=== PATIENT | male | born 1955 | race Caucasian/White ===

== ENCOUNTER → 2016-06-10 | Outpatient (REF) | payer BC ==
[2016-06-10 17:12] LABS: MEAN CORPUSCULAR HEMOGLOBIN 29.6 pg (27.0-33.0); MEAN CORPUSCULAR HGB CONC 32.6 g/dl (32.0-36.5); MEAN CORPUSCULAR VOLUME 90.8 fl (80.0-96.0); RED CELL DISTRIBUTION WIDTH 12.7 % (11.5-14.5); WHITE BLOOD COUNT 9.8 K/mm3 (4.0-10.0)
[2016-06-10 18:04] LABS: ALBUMIN 3.8 GM/DL (3.2-5.2); ALBUMIN/GLOBULIN RATIO 1.15 (1.00-1.93); ALKALINE PHOSPHATASE 103 U/L (45-117); ALT/SGPT 38 U/L (12-78); ANION GAP 8 MEQ/L (8-16); AST/SGOT 26 U/L (15-37); BILIRUBIN,TOTAL 0.5 MG/DL (0.2-1.0); BLOOD UREA NITROGEN 19 MG/DL (7-18); CALCIUM LEVEL 9.4 MG/DL (8.8-10.2); CARBON DIOXIDE LEVEL 31 MEQ/L (21-32); CHLORIDE LEVEL 101 MEQ/L (98-107); CHOLESTEROL LEVEL 170 MG/DL (<200); CREATININE FOR GFR 0.73 MG/DL (0.70-1.30); GLOMERULAR FILTRATION RATE > 60.0 (>49); GLUCOSE, FASTING 104 MG/DL (80-110); POTASSIUM SERUM 4.3 MEQ/L (3.5-5.1); SODIUM LEVEL 140 MEQ/L (136-145); TOTAL PROTEIN 7.1 GM/DL (6.4-8.2); TRIGLYCERIDES LEVEL 167 MG/DL (<150)
== END ==
LOC: M LAB REF 16:24
PROVIDERS: ATTEND Family Medicine
DX: E29.1 Testicular hypofunction (principal); I10 Essential (primary) hypertension

== ENCOUNTER → 2017-04-29 | Outpatient (CLI) | payer BC | LOC: M WUC 14:56 | DX: M54.5 Low back pain (principal) ==

== ENCOUNTER 2017-05-09 13:28 | Emergency (ER) | payer BC | END 2017-05-09 16:30 | disposition home or self-care (01) | LOC: M ED 13:28 | DX: M54.5 Low back pain (principal); M62.830 Muscle spasm of back; G89.29 Other chronic pain; I10 Essential (primary) hypertension; K21.9 Gastro-esophageal reflux disease without esophagitis; Z91.81 History of falling; Z79.899 Other long term (current) drug therapy | CPT/HCPCS: 99282 ==

== ENCOUNTER → 2017-06-01 | Outpatient (CLI) | payer BC ==
[2017-06-01 18:05] LABS: BASO # 0.1 10^3/uL (0.0-0.2); BASO % 0.7 % (0.0-1.0); EOS # 0.4 10^3/uL (0.0-0.50); EOS % 4.5 % (0.0-3.0); HEMATOCRIT 43.3 % (42.0-52.0); HEMOGLOBIN 13.9 g/dl (14.0-18.0); IMMATURE GRANULOCYTE % 0.4 % (0-3.0); LYMPH # 3.1 10^3/uL (1.5-4.5); LYMPH % 31.5 % (24.0-44.0); MEAN CORPUSCULAR HEMOGLOBIN 29.1 pg (27.0-33.0); MEAN CORPUSCULAR HGB CONC 32.1 g/dl (32.0-36.5); MEAN CORPUSCULAR VOLUME 90.8 fl (80.0-96.0); MONO # 0.7 10^3/uL (0.0-0.8); MONO % 7.6 % (0.0-5.0); NEUTROPHILS # 5.4 10^3/uL (1.8-7.7); NEUTROPHILS % 55.3 % (36.0-66.0); PLATELET COUNT, AUTOMATED 271 10^3/uL (150-450); RED BLOOD COUNT 4.77 10^6/uL (4.30-6.10); RED CELL DISTRIBUTION WIDTH 13.8 % (11.5-14.5); WHITE BLOOD COUNT 9.7 10^3/uL (4.0-10.0)
[2017-06-01 18:17] LABS: ALBUMIN 3.6 GM/DL (3.2-5.2); ALBUMIN/GLOBULIN RATIO 1.09 (1.00-1.93); ALKALINE PHOSPHATASE 98 U/L (45-117); ALT/SGPT 42 U/L (12-78); ANION GAP 9 MEQ/L (8-16); AST/SGOT 26 U/L (7-37); BILIRUBIN,TOTAL 0.5 MG/DL (0.2-1.0); BLOOD UREA NITROGEN 19 MG/DL (7-18); CALCIUM LEVEL 8.4 MG/DL (8.8-10.2); CARBON DIOXIDE LEVEL 29 MEQ/L (21-32); CHLORIDE LEVEL 104 MEQ/L (98-107); CHOLESTEROL LEVEL 139 MG/DL (<200); CHOLESTEROL RISK RATIO 3.657 (<5); CREATININE FOR GFR 0.83 MG/DL (0.70-1.30); GLOMERULAR FILTRATION RATE > 60.0 (>49); GLUCOSE, FASTING 102 MG/DL (70-100); HDL CHOLESTEROL 38 MG/DL (>40); LDL CHOLESTEROL 80.2 MG/DL (<100); NON-HDL-C 101 MG/DL; POTASSIUM SERUM 4.1 MEQ/L (3.5-5.1); SODIUM LEVEL 142 MEQ/L (136-145); TOTAL PROTEIN 6.9 GM/DL (6.4-8.2); TRIGLYCERIDES LEVEL 104 MG/DL (<150)
== END ==
LOC: M WUC 09:47
DX: I10 Essential (primary) hypertension (principal)
CPT/HCPCS: 80053

== ENCOUNTER → 2018-02-03 | Outpatient (CLI) | payer BC ==
[2018-02-03 12:41] LABS: BASO # 0.1 10^3/uL (0.0-0.2); BASO % 0.9 % (0.0-1.0); EOS # 0.3 10^3/uL (0.0-0.50); EOS % 2.9 % (0.0-3.0); HEMATOCRIT 48.2 % (42.0-52.0); HEMOGLOBIN 15.7 g/dl (13.5-17.5); IMMATURE GRANULOCYTE % 0.4 % (0-3.0); LYMPH # 3.9 10^3/uL (1.5-4.5); MEAN CORPUSCULAR HGB CONC 32.6 g/dl (32.0-36.5); MEAN CORPUSCULAR VOLUME 92.2 fl (80.0-96.0); MONO # 0.8 10^3/uL (0.0-0.8); MONO % 6.7 % (0.0-5.0); NEUTROPHILS % 54.1 % (36.0-66.0); PLATELET COUNT, AUTOMATED 341 10^3/uL (150-450); RED BLOOD COUNT 5.23 10^6/uL (4.30-6.10); RED CELL DISTRIBUTION WIDTH 13.2 % (11.5-14.5); WHITE BLOOD COUNT 11.2 10^3/uL (4.0-10.0)
[2018-02-03 12:50] LABS: ALBUMIN 3.9 GM/DL (3.2-5.2); ALBUMIN/GLOBULIN RATIO 1.15 (1.00-1.93); ALKALINE PHOSPHATASE 107 U/L (45-117); ALT/SGPT 40 U/L (12-78); ANION GAP 9 MEQ/L (8-16); AST/SGOT 19 U/L (7-37); BILIRUBIN,TOTAL 0.4 MG/DL (0.2-1.0); BLOOD UREA NITROGEN 19 MG/DL (7-18); CALCIUM LEVEL 9.1 MG/DL (8.8-10.2); CARBON DIOXIDE LEVEL 26 MEQ/L (21-32); CHLORIDE LEVEL 103 MEQ/L (98-107); CREATININE FOR GFR 1.04 MG/DL (0.70-1.30); GLOMERULAR FILTRATION RATE > 60.0 (>49); GLUCOSE, FASTING 123 MG/DL (70-100); POTASSIUM SERUM 4.2 MEQ/L (3.5-5.1); SODIUM LEVEL 138 MEQ/L (136-145); TOTAL PROTEIN 7.3 GM/DL (6.4-8.2)
== END ==
LOC: M WUC 09:57
DX: I10 Essential (primary) hypertension (principal)
CPT/HCPCS: 84443

== ENCOUNTER → 2018-06-10 | Outpatient (CLI) | payer OTHER ==
[~2018-06-10] MED LIST: AMLO10CA PO; CELE1CAP9 PO; METO50TA9; ROBA500T PO; SIMV20TA2 PO
[2018-06-10 16:39] LABS: ALBUMIN 3.9 GM/DL (3.2-5.2); BLOOD UREA NITROGEN 25 MG/DL (7-18); CALCIUM LEVEL 9.2 MG/DL (8.8-10.2); CARBON DIOXIDE LEVEL 25 MEQ/L (21-32); CHLORIDE LEVEL 101 MEQ/L (98-107); GLOMERULAR FILTRATION RATE > 60.0 (>49); GLUCOSE, FASTING 105 MG/DL (70-100); PHOSPHORUS LEVEL 3.5 MG/DL (2.5-4.9); POTASSIUM SERUM 4.8 MEQ/L (3.5-5.1); SODIUM LEVEL 136 MEQ/L (136-145)
== END ==
LOC: M WUC 10:54
DX: R94.4 Abnormal results of kidney function studies (principal)

== ENCOUNTER → 2018-07-14 | Outpatient (CLI) | payer OTHER ==
--- NOTE | 2018-07-20 16:56 | SLEEPCENT ---
DATE OF PROCEDURE: 07/14/2018 ORDERED BY: SUZIE Mckeon Nocturnal polysomnography was performed for the evaluation of sleep physiology in this patient with a history of excessive somnolence and nonrestorative sleep. 8 hours and 40 minutes of data were reviewed. There were 328 minutes of sleep identified. Sleep latency was mildly prolonged at 23.5 minutes, rapid eye movement (REM) latency more so prolonged at 242 minutes. Sleep architecture initially quite fragmented improved after interventions were made. Overall sleep efficiency 63.8%. The patient's electrocardiogram showed a sinus rhythm with PVCs. Average heart rate 90 beats per minute. EEG showed normal waveforms for awake and sleep. There were 138 respiratory events identified of 10 seconds in duration or greater for an apnea-hypopnea index of 25.2. The events were primarily obstructive, associated with arousals 22.8 times per hour and oxygen desaturations into the 80s. Having clearly established the presence of obstructive sleep apnea syndrome, testing was stopped shortly after midnight for the application of pressure therapy. The patient was fit with a ResMed Quattro full face mask of medium size, 5 cm of water pressure was applied to the circuit, and the lights were extinguished. Throughout the remaining course of study, pressure titration was performed to an optimal pressure of +13 with which the patient slept through REM without significant respiratory event or oxygen desaturation. Some limb activity was seen in the EMG leads. IMPRESSION: Obstructive sleep apnea syndrome (G47.33). Apnea-hypopnea index 25.2. RECOMMENDATIONS: The patient should utilize continuous positive airway pressure (CPAP) at a pressure of 11 cm on a nightly basis.
== END ==
LOC: M SLEEP 19:38
PROVIDERS: ATTEND Nurse Practitioner Family
DX: G47.33 Obstructive sleep apnea (adult) (pediatric) (principal)

== ENCOUNTER → 2018-09-15 | Outpatient (CLI) | payer OTHER ==
[~2018-09-15] MED LIST changes: -AMLO10CA PO; +AMLO10CA17 PO; +CONT1TAB PO; +DILT60TA PO; +ELIQ5TAB PO; +METO200T28 PO
--- NOTE | 2018-09-21 09:38 | REP ---
PET/CT: HISTORY: Staging metastatic melanoma as a lymph node. History of melanoma right lower leg, stage III C. COMPARISONS: No comparison studies. TECHNIQUE: 50 minutes following the intravenous injection of a 9.38 mCi dose of F-18 FDG, three-dimensional PET scintigraphy was attempted from the skull vertex to the toes. Triplanar noncontrast CT scanning is acquired through the same anatomic range for attenuation correction, and image registration with scan parameters optimized to minimize radiation exposure to the patient. PET scintigraphy and CT datasets were fused and displayed on a workstation with multiplanar and projection display capability. The patient had difficulty cooperating with remaining motionless in the scanner and in the middle of the scan, the patient insisted that we interrupt the exam. The head, neck, chest, and abdomen to mid pelvic level were acquired as one linked sequence prior to the interruption. The scintigraphic sequence could not be completed and was interrupted at the level of the mid pelvis through the distal thighs. A separate scintigraphic acquisition was acquired of the calves. Image quality was also inhibited by patient body habitus. PET/CT FINDINGS: The scintigraphic imaging acquisition was incomplete from mid pelvic level to the level of the distal femurs just above the knees. Head and neck soft tissues are unremarkable. There is no abnormal hypermetabolic uptake in the thorax. There is some artifact in the anterior abdomen regarding patient body habitus but no abnormal retroperitoneal huy or intrahepatic hypermetabolic uptake is appreciated. No adenopathy is noted in the upper pelvis. No adenopathy is visible in the lower pelvis or inguinal regions by CT study but scintigraphy imaging is incomplete here. There is a linear zone of dermal and subcutaneous FDG accumulation in the posterolateral aspect of the right calf suggestive of postoperative changes. Maximum standard uptake value here is 4.72. Images acquired of the lower extremity are otherwise unremarkable. IMPRESSION: Incomplete imaging due to patient tolerance factors. Linear area of presumed postoperative uptake in the right lateral calf. No other abnormal hypermetabolic uptake seen. The PET scintigraphy acquisition was incomplete in the area from the distal thighs to the central pelvis. Electronically Signed by Brian Leroy MD 09/21/2018 11:57 A
== END ==
LOC: M PLARAD 11:23
PROVIDERS: ATTEND Surgery Surgical Oncology
DX: C77.9 Secondary and unspecified malignant neoplasm of lymph node, unspecified (principal); Z85.820 Personal history of malignant melanoma of skin; Z53.8 Procedure and treatment not carried out for other reasons
CPT/HCPCS: 78816; A9552

== ENCOUNTER → 2018-12-05 | Outpatient (CLI) | payer OTHER ==
[~2018-12-05] MED LIST changes: +HYDR-643 PO
--- NOTE | 2018-12-05 14:54 | REP ---
Right clavicle two views : There is no fracture or dislocation. Mineralization and joint spaces are normal. There are no calcifications or foreign bodies. Impression: Negative right clavicle . Electronically Signed by Devante Roger MD 12/05/2018 02:45 P
== END ==
LOC: M WUC 14:16
PROVIDERS: ATTEND Physician Assistant
DX: M25.512 Pain in left shoulder (principal)

== ENCOUNTER 2019-02-19 09:30 | Day surgery (SDC) | payer OTHER ==
[~2019-02-19] VITALS: Ht 177.8 cm; Wt 189.3 kg
[~2019-02-19 09:30] MED LIST changes: +LIDOCAINE 2% INJ 100 MG/5 ML SDV (FOR ANES.) As Ordered ONE; +LOTR10CA PO; +MIDAZOLAM INJ 2 MG/2 ML VIAL (J2250) As Ordered ONE; +ONDANSETRON 4MG/2ML VIAL (J2405) As Ordered ONE; +PROPOFOL 200 MG/20 ML VIAL As Ordered ONE; -SIMV20TA2 PO; +SIMV20TA22 PO; +fentaNYL 100 MCG/2 ML INJECTION (J3010) As Ordered ONE
[2019-02-19] MEDS ORDERED: LR 1,000 ML IV ONE (10:15)
[2019-02-19] MEDS ORDERED: ceFAZolin SOD 1 GM in D5W MINI-BAG PLUS 50 ML IV ONE (10:15)
--- NOTE | 2019-02-19 10:31 | ECGEPIP ---
[facility] Test Date: 2019-02-19 Pat Name: GAVIN GRIDER Department: Room: - Gender: Male Entry Level Buyer: KAJAL : [id number] Requested By: Leonard Jacobo Order Number: [id number] Reading MD: Fred Killian Measurements Intervals [place] Rate: 117 P: ND: 0 QRS: 39 QRSD: 143 T: -14 QT: 330 QTc: 462 Interpretive Statements ATRIAL FIBRILLATION WITH RAPID VENTRICULAR RESPONSE Right bundle branch block Nonspecific ST-T wave abnormalities Electronically Signed on 02-19-2019 10:31:47 EST by Fred Killian
[2019-02-19] MEDS ORDERED: LR 500 ML IV ONE (10:45)
[2019-02-19] MEDS ORDERED: LIDOCAINE 1% SDV INJ 30 ML VIAL As Ordered ONE (10:46)
[2019-02-19] MEDS ORDERED: BUPIVACAINE HCL 0.5% 30 ML VIAL As Ordered ONE (10:47)
[2019-02-19] MEDS ORDERED: HEPARIN SOD (PORCINE) 5000 UNITS/ML VIAL As Ordered ONE (10:48)
[2019-02-19] MEDS ORDERED: METOPROLOL 5 MG/5 ML VIAL As Ordered ONE (11:12)
[2019-02-19] MEDS ORDERED: ALBUTEROL SULFATE 2.5 MG/0.5 ML INH NEB SOLN As Ordered ONE (11:18)
[2019-02-19 12:15] VITALS: BP 135/78
[2019-02-19] MEDS ORDERED: LR 1,000 ML IV SCH (13:15)
[2019-02-19] MEDS ORDERED: PERCOCET 5MG/325MG TAB PO PRN (13:15)
[2019-02-19] MEDS ORDERED: HYDROMORPHONE HCL 0.5 MG/ 0.5 ML SYRINGE (J1170 PER 1) IV PRN (13:15)
[2019-02-19] MEDS ORDERED: fentaNYL 100 MCG/2 ML INJECTION (J3010) IV PRN (13:15)
[2019-02-19] MEDS ORDERED: ONDANSETRON 4MG/2ML VIAL (J2405) IV PRN (13:15)
--- NOTE | 2019-02-22 07:40 | REP ---
Clinical: Status post Lhtthf-D-Zwvd placement. Findings: Mehugj-M-Gfwl identified with tip in the SVC. Mediastinum and cardiac silhouette are normal. No consolidation, obvious effusion, or pneumothorax. Skeletal structures are intact. Impression: Sjblok-P-Uiyf with tip in the SVC. No pneumothorax. Electronically Signed by Mason Pitt MD 02/19/2019 12:41 P
--- NOTE | 2019-02-22 18:39 | RO ---
DATE OF PROCEDURE: 02/19/2019 PREOPERATIVE DIAGNOSIS: IV access needed for chemotherapy. POSTOPERATIVE DIAGNOSIS: IV access needed for chemotherapy. PROCEDURE: Left subclavian Kuafci-J-Ccmq placement with fluoroscopic guidance. SURGEON: Lio Farooq MD BOTTLING ROOM WORKER: ANESTHESIA: Local with sedation. ESTIMATED BLOOD LOSS: Minimal. FLUIDS: Crystalloid. DESCRIPTION OF PROCEDURE: The patient was brought to the operating room, was given IV sedation, was prepped and draped in the usual sterile fashion, and was placed in the supine position with a slightly Trendelenburg position, but given his overall morbid obesity, this was just a slight reclining position. In any case, after being prepped and draped in the usual sterile fashion, local lidocaine was infiltrated in the skin and subcutaneous tissue down to the clavicle on the left-hand side and finder needle was placed into the vein. At this point, the port site was infiltrated with local, and once this was infiltrated, a needle was placed into the vein without difficulty, wire placed over this and fluoroscopy confirmed placement of the wire into the superior vena cava. The Qkyhsk-Q-Ctcc pocket then was created, first with a skin knife. Electrocautery was used to cut through dermis, underlying subcutaneous tissue. The patient had a significant amount of collaterals all across his chest wall but eventually after good hemostasis was achieved and adequate pocket size, the Blzhyi-A-Ktmu was sewn in medially and laterally with #3-0 Vicryl. The Dfxdeh-O-Mfoj was cut to the appropriate length at 22 cm and brought through a subcutaneous pocket up to the puncture site at the infraclavicular area. Dilator was placed over the wire, then dilator sheath combination was placed over the wire. The sheath was left in place. The dilator and wire were removed, and the catheter placed through this without difficulty. The peel-away sheath was removed, and the catheter flushed and aspirated without difficulty. Fluoroscopy confirmed placement of the catheter in the superior vena cava area, and then the incisions were closed with two layers, #3-0 Vicryl dermal layer and #4-0 Vicryl subcuticular. Steri-Strips and a dry sterile dressing was applied. The patient was awakened from his sedation, brought to the recovery room awake, alert, hemodynamically stable. Sponge and needle counts correct times two.
== END 2019-02-19 12:25 | disposition home or self-care (01) ==
LOC: M SDC 09:30
PROVIDERS: ATTEND Surgery
DX: C43.71 Malignant melanoma of right lower limb, including hip (principal); Z45.2 Encounter for adjustment and management of vascular access device; I48.91 Unspecified atrial fibrillation; I10 Essential (primary) hypertension; E78.5 Hyperlipidemia, unspecified; E66.01 Morbid (severe) obesity due to excess calories; G47.30 Sleep apnea, unspecified; Z87.891 Personal history of nicotine dependence; Z79.01 Long term (current) use of anticoagulants; Z79.899 Other long term (current) drug therapy
CPT/HCPCS: 36561; 71045; 76000; 93005; C1788; J0690; J2250; J2405; J3010

== ENCOUNTER → 2019-11-04 | Outpatient (CLI) | payer OTHER ==
[~2019-11-04] MED LIST changes: +CLOB-25; -LIDOCAINE 2% INJ 100 MG/5 ML SDV (FOR ANES.) As Ordered ONE; -MIDAZOLAM INJ 2 MG/2 ML VIAL (J2250) As Ordered ONE; -ONDANSETRON 4MG/2ML VIAL (J2405) As Ordered ONE; -PROPOFOL 200 MG/20 ML VIAL As Ordered ONE; -fentaNYL 100 MCG/2 ML INJECTION (J3010) As Ordered ONE
--- NOTE | 2019-11-12 16:51 | REP ---
BILATERAL SOFT TISSUE ULTRASOUND OF THE GROIN HISTORY: Stage III melanoma right leg with positive lymph node. Evaluate right inguinal lymph nodes for recurrence. COMPARISON: Made with imaging from PET CT study 09/15/2018. FINDINGS: A single lymph node is visible in the right inguinal soft tissues with a thin cortical margin and a central hilar echogenic fat consistent with a benign lymph node. This measures 9 x 9 x 6 mm. On the left, there are two benign appearing fat-replaced lymph nodes with thin cortical margins. These measure as follows: 11 x 9 x 12 mm and 34 x 6 x 11 mm respectively. No abnormalities fluid collection is seen on either side. IMPRESSION: No evidence of adenopathy seen by ultrasound. MTDD
== END ==
LOC: M RAD 08:36
PROVIDERS: ATTEND Surgery Surgical Oncology
DX: C43.71 Malignant melanoma of right lower limb, including hip (principal)

== ENCOUNTER → 2020-05-09 | Outpatient (CLI) | payer OTHER ==
[~2020-05-09] MED LIST changes: +FURO20TA2 PO; +LISI10TA22 PO
[2020-05-09 07:47] LABS: BLOOD UREA NITROGEN 22 MG/DL (7-18); CALCIUM LEVEL 9.1 MG/DL (8.8-10.2); CARBON DIOXIDE LEVEL 25 MEQ/L (21-32); CHLORIDE LEVEL 106 MEQ/L (98-107); CREATININE FOR GFR 0.95 MG/DL (0.70-1.30); GLOMERULAR FILTRATION RATE > 60.0 (>49); GLUCOSE, FASTING 116 MG/DL (70-100); POTASSIUM SERUM 4.2 MEQ/L (3.5-5.1); SODIUM LEVEL 141 MEQ/L (136-145)
== END ==
LOC: M LAB 06:50
PROVIDERS: ATTEND Family Medicine
DX: I10 Essential (primary) hypertension (principal)

== ENCOUNTER → 2021-07-14 | Outpatient (REF) | payer MEDICARE, OTHER | LOC: M WUC 17:29 | PROVIDERS: ATTEND Physician Assistant | DX: L02.212 Cutaneous abscess of back [any part, except buttock and flank] (principal) ==

== ENCOUNTER 2021-10-15 19:32 | Emergency (ER) | payer MEDICARE, OTHER ==
[~2021-10-15] VITALS: Ht 175.3 cm; Wt 163.6 kg
[2021-10-15] MEDS ORDERED: PANTOPRAZOLE 40MG VIAL IV ONE (19:40)
[2021-10-15] MEDS ORDERED: OCTREOTIDE ACETATE 100MCG/ML VIAL **IV ADMINISTRATION ONLY IV ONE (19:45)
[2021-10-15] MEDS: PANTOPRAZOLE SODIUM 40 MG in D5W MINI-BAG PLUS 50 ML IV SCH (19:45)
[2021-10-15] MEDS ORDERED: NS 1,000 ML IV ONE (19:55)
[2021-10-15 20:03] LABS: BASO # 0.1 10^3/uL (0.0-0.2); BASO % 0.5 % (0.0-1.0); EOS # 0.3 10^3/uL (0.0-0.5); EOS % 1.7 % (0.0-3.0); HEMATOCRIT 33.7 % (42.0-52.0); HEMOGLOBIN 10.6 g/dl (13.5-17.5); LYMPH % 29.6 % (24.0-44.0); MEAN CORPUSCULAR HEMOGLOBIN 30.6 pg (27.0-33.0); MEAN CORPUSCULAR HGB CONC 31.5 g/dl (32.0-36.5); MEAN CORPUSCULAR VOLUME 97.4 fl (80.0-96.0); MONO # 1.1 10^3/uL (0.0-0.8); MONO % 6.5 % (2.0-8.0); NEUTROPHILS # 10.2 10^3/uL (1.5-8.5); NEUTROPHILS % 60.8 % (36.0-66.0); PLATELET COUNT, AUTOMATED 369 10^3/uL (150-450); RED BLOOD COUNT 3.46 10^6/uL (4.30-6.10); WHITE BLOOD COUNT 16.8 10^3/uL (4.0-10.0)
[2021-10-15 20:21] LABS: INR 1.22; PARTIAL THROMBOPLASTIN TIME 32.8 SECONDS (25.9-37.0); PROTHROMBIN TIME 15.8 SECONDS (12.7-14.5)
[2021-10-15 20:27] LABS: ALBUMIN 2.7 GM/DL (3.2-5.2); ALT/SGPT 24 U/L (12-78); BILIRUBIN,DIRECT 0.1 MG/DL (0.0-0.2); BILIRUBIN,TOTAL 0.3 MG/DL (0.2-1.0); BLOOD UREA NITROGEN 22 MG/DL (7-18); CALCIUM LEVEL 8.2 MG/DL (8.8-10.2); CARBON DIOXIDE LEVEL 24 MEQ/L (21-32); CHLORIDE LEVEL 111 MEQ/L (98-107); CREATININE FOR GFR 0.91 MG/DL (0.70-1.30); GLOMERULAR FILTRATION RATE > 60.0 (>49); GLUCOSE, FASTING 168 MG/DL (70-100); LIPASE 117 U/L (73-393); POTASSIUM SERUM 4.6 MEQ/L (3.5-5.1); SODIUM LEVEL 142 MEQ/L (136-145); TOTAL PROTEIN 5.7 GM/DL (6.4-8.2)
[2021-10-15 20:29] LABS: CK-MB VALUE MASS < 1.0 NG/ML (<3.6); CPK CREATINE PHOSPHOKINASE 27 U/L (39-308)
[2021-10-15 20:32] LABS: RSV AMPLIFICATION NEGATIVE (NEGATIVE)
[2021-10-15] MEDS ORDERED: OCTREOTIDE ACETATE 1,200 MCG in NS 238.8 ML IV SCH (21:00)
[2021-10-15] MEDS ORDERED: ISOVUE-370 76% 100ML VIAL As Ordered ONE (21:22)
[2021-10-15 21:57] LABS: ABG BASE EXCESS -4.8 (-2.0-2.0); ABG HCO3 20.2 MEQ/L (22.0-26.0); ABG O2 SATURATION 96.3 % (95.0-99.0); ABG PARTIAL PRESSURE CO2 37.2 mmHg (35.0-45.0); ABG PARTIAL PRESSURE O2 88.5 mmHg (75.0-100.0); ABG STANDARD HCO3 20.5 MEQ/L (22.0-26.0); ABG TOTAL CO2 21.4 MEQ/L (23.0-31.0); ABG pH (ARTERIAL) 7.353 UNITS (7.350-7.450)
[2021-10-16] MEDS: PANTOPRAZOLE SODIUM 40 MG in D5W MINI-BAG PLUS 50 ML IV SCH (00:13)
[2021-10-16 00:21] VITALS: BP 155/71
[2021-10-16 00:35] LABS: BASO # 0.1 10^3/uL (0.0-0.2); BASO % 0.4 % (0.0-1.0); EOS % 0.1 % (0.0-3.0); HEMATOCRIT 32.7 % (42.0-52.0); LYMPH # 2.8 10^3/uL (1.5-5.0); LYMPH % 19.7 % (24.0-44.0); MEAN CORPUSCULAR HEMOGLOBIN 29.7 pg (27.0-33.0); MEAN CORPUSCULAR HGB CONC 30.6 g/dl (32.0-36.5); MONO # 0.7 10^3/uL (0.0-0.8); MONO % 4.9 % (2.0-8.0); NEUTROPHILS # 10.7 10^3/uL (1.5-8.5); NEUTROPHILS % 74.1 % (36.0-66.0); PLATELET COUNT, AUTOMATED 325 10^3/uL (150-450); RED BLOOD COUNT 3.37 10^6/uL (4.30-6.10); WHITE BLOOD COUNT 14.4 10^3/uL (4.0-10.0)
== END 2021-10-16 00:32 | disposition short-term general hospital (02) ==
LOC: EDBD 19:32 → M ED 19:32
DX: K92.2 Gastrointestinal hemorrhage, unspecified (principal); K57.30 Diverticulosis of large intestine without perforation or abscess without bleeding; I11.0 Hypertensive heart disease with heart failure; I50.9 Heart failure, unspecified; I48.91 Unspecified atrial fibrillation; E78.5 Hyperlipidemia, unspecified; Z98.84 Bariatric surgery status; Z90.89 Acquired absence of other organs; Z79.01 Long term (current) use of anticoagulants; Z79.899 Other long term (current) drug therapy
CPT/HCPCS: 36600; 71260; 74177; 80047; 80048; 80076; 82550; 82553; 82803; 83605; 83690; 84484; 85025; 85610; 85730; 86850; 86900; 86901; 86920; 87631; 93005; 93041; 96365; 96366; 96367; 96375; 99285; C9113; J2354; Q9967

== ENCOUNTER → 2021-10-22 | Outpatient (CLI) | payer MEDICARE, OTHER ==
[2021-10-22 12:57] LABS: BASO # 0.1 10^3/uL (0.0-0.2); BASO % 0.8 % (0.0-1.0); EOS # 0.3 10^3/uL (0.0-0.5); EOS % 2.2 % (0.0-3.0); HEMATOCRIT 33.4 % (42.0-52.0); HEMOGLOBIN 10.1 g/dl (13.5-17.5); LYMPH % 43.1 % (24.0-44.0); MEAN CORPUSCULAR HEMOGLOBIN 29.6 pg (27.0-33.0); MEAN CORPUSCULAR HGB CONC 30.2 g/dl (32.0-36.5); MEAN CORPUSCULAR VOLUME 97.9 fl (80.0-96.0); MONO # 0.9 10^3/uL (0.0-0.8); MONO % 7.3 % (2.0-8.0); NEUTROPHILS # 5.4 10^3/uL (1.5-8.5); PLATELET COUNT, AUTOMATED 413 10^3/uL (150-450); RED BLOOD COUNT 3.41 10^6/uL (4.30-6.10); WHITE BLOOD COUNT 11.7 10^3/uL (4.0-10.0)
== END ==
LOC: M WUC 09:48
PROVIDERS: ATTEND Family Medicine
DX: K25.9 Gastric ulcer, unspecified as acute or chronic, without hemorrhage or perforation (principal)

== ENCOUNTER → 2021-11-26 | Outpatient (CLI) | payer MEDICARE, OTHER ==
[2021-11-26 12:19] LABS: HEMATOCRIT 39.4 % (42.0-52.0); HEMOGLOBIN 12.1 g/dl (13.5-17.5); MEAN CORPUSCULAR HEMOGLOBIN 28.5 pg (27.0-33.0); MEAN CORPUSCULAR HGB CONC 30.7 g/dl (32.0-36.5); MEAN CORPUSCULAR VOLUME 92.9 fl (80.0-96.0); PLATELET COUNT, AUTOMATED 423 10^3/uL (150-450); RED BLOOD COUNT 4.24 10^6/uL (4.30-6.10)
[2021-11-26 14:25] LABS: ALBUMIN 3.5 GM/DL (3.2-5.2); ALT/SGPT 24 U/L (12-78); BILIRUBIN,TOTAL 0.3 MG/DL (0.2-1.0); BLOOD UREA NITROGEN 13 MG/DL (7-18); CALCIUM LEVEL 9.4 MG/DL (8.8-10.2); CARBON DIOXIDE LEVEL 24 MEQ/L (21-32); CHLORIDE LEVEL 106 MEQ/L (98-107); CHOLESTEROL LEVEL 124 MG/DL (<200); CHOLESTEROL RISK RATIO 3.351 (<5); CREATININE FOR GFR 0.78 MG/DL (0.70-1.30); FERRITIN 16 NG/ML (26-388); GLOMERULAR FILTRATION RATE > 60.0 (>49); GLUCOSE, FASTING 96 MG/DL (70-100); HDL CHOLESTEROL 37 MG/DL (>40); IRON (FE) 38 UG/DL (65-175); LDL CHOLESTEROL 69 MG/DL (<100); NON-HDL-C 87 MG/DL; PERCENT SATURATION 9.5 % (19.7-50.0); POTASSIUM SERUM 3.9 MEQ/L (3.5-5.1); SODIUM LEVEL 138 MEQ/L (136-145); TOTAL IRON BINDING CAPACITY 401 UG/DL (250-450); TOTAL PROTEIN 7.1 GM/DL (6.4-8.2); TRIGLYCERIDES LEVEL 88 MG/DL (<150)
[2021-11-26 15:12] LABS: TOTAL 25(OH) VITAMIN D 66.1 NG/ML (30.0-100.0)
[2021-11-26 15:13] LABS: VITAMIN B12 LEVEL 534 PG/ML (247-911)
== END ==
LOC: M WUC 08:42
PROVIDERS: ATTEND Physician Assistant
DX: K91.2 Postsurgical malabsorption, not elsewhere classified (principal); Z98.84 Bariatric surgery status; Z13.220 Encounter for screening for lipoid disorders; Z13.21 Encounter for screening for nutritional disorder

== ENCOUNTER → 2021-11-29 | Outpatient (CLI) | payer MEDICARE, OTHER | LOC: M WHC 08:39 | PROVIDERS: ATTEND Nurse Practitioner Family | DX: L72.3 Sebaceous cyst (principal) ==

== ENCOUNTER 2022-02-25 16:36 | Emergency (ER) | payer MEDICARE, OTHER ==
[~2022-02-25] VITALS: Ht 177.8 cm; Wt 148.6 kg
[2022-02-25] MEDS ORDERED: SILVER NITRATE APPLICATOR (1 = QTY 10) TOP ONE ×2 (17:50→17:55)
[2022-02-25] MEDS ORDERED: OXYMETAZOLINE 0.05% NASAL SPRAY (AFRIN) STA (17:52)
[2022-02-25 18:24] LABS: BASO # 0.1 10^3/uL (0.0-0.2); BASO % 0.6 % (0.0-1.0); EOS # 0.1 10^3/uL (0.0-0.5); EOS % 0.8 % (0.0-3.0); HEMATOCRIT 45.7 % (42.0-52.0); HEMOGLOBIN 14.5 g/dl (13.5-17.5); LYMPH # 2.5 10^3/uL (1.5-5.0); LYMPH % 21.2 % (24.0-44.0); MEAN CORPUSCULAR HEMOGLOBIN 27.7 pg (27.0-33.0); MEAN CORPUSCULAR HGB CONC 31.7 g/dl (32.0-36.5); MEAN CORPUSCULAR VOLUME 87.4 fl (80.0-96.0); MONO # 0.9 10^3/uL (0.0-0.8); MONO % 7.2 % (2.0-8.0); NEUTROPHILS # 8.3 10^3/uL (1.5-8.5); NEUTROPHILS % 69.9 % (36.0-66.0); PLATELET COUNT, AUTOMATED 308 10^3/uL (150-450); RED BLOOD COUNT 5.23 10^6/uL (4.30-6.10); WHITE BLOOD COUNT 11.9 10^3/uL (4.0-10.0)
[2022-02-25 18:38] LABS: INR 1.11; PROTHROMBIN TIME 14.5 SECONDS (12.5-14.5)
[2022-02-25 18:39] LABS: PARTIAL THROMBOPLASTIN TIME 32.3 SECONDS (24.8-34.2)
[2022-02-25] MEDS ORDERED: LABETALOL 100MG/20ML VIAL IV STA (19:11)
[2022-02-25 19:45] VITALS: BP 148/82
[2022-02-25] MEDS ORDERED: LIDOCAINE W/EPINEPHRINE 1% 20ML VIAL As Ordered ONE (19:49)
[2022-02-25] MEDS ORDERED: LIDOCAINE W/EPINEPHRINE 1% 20ML VIAL SC ONE (19:55)
[2022-02-25] MEDS ORDERED: EPINEPHrine 1MG/ML INJ 30ML MD-VIAL As Ordered ONE (20:05)
== END 2022-02-25 20:33 | disposition home or self-care (01) ==
LOC: EDBD 16:36 → M ED 16:36
DX: R04.0 Epistaxis (principal); I48.91 Unspecified atrial fibrillation; I10 Essential (primary) hypertension; E78.5 Hyperlipidemia, unspecified; Z85.820 Personal history of malignant melanoma of skin; Z79.01 Long term (current) use of anticoagulants; Z79.899 Other long term (current) drug therapy

== ENCOUNTER → 2022-07-11 | Outpatient (CLI) | payer MEDICARE, OTHER ==
[2022-07-11 13:19] LABS: HEMATOCRIT 47.8 % (42.0-52.0); HEMOGLOBIN 15.5 g/dl (13.5-17.5); MEAN CORPUSCULAR HEMOGLOBIN 30.9 pg (27.0-33.0); MEAN CORPUSCULAR HGB CONC 32.4 g/dl (32.0-36.5); MEAN CORPUSCULAR VOLUME 95.2 fl (80.0-96.0); PLATELET COUNT, AUTOMATED 328 10^3/uL (150-450); RED BLOOD COUNT 5.02 10^6/uL (4.30-6.10); WHITE BLOOD COUNT 9.1 10^3/uL (4.0-10.0)
[2022-07-11 13:58] LABS: ALBUMIN 3.8 G/DL (3.2-5.2); ALKALINE PHOSPHATASE 120 U/L (46-116); ALT/SGPT 38 U/L (7.0-40); AST/SGOT 31 U/L (<34); BILIRUBIN,TOTAL 0.6 MG/DL (0.3-1.2); BLOOD UREA NITROGEN 23 MG/DL (9-23); CALCIUM LEVEL 9.6 MG/DL (8.3-10.6); CARBON DIOXIDE LEVEL 27 MMOL/L (20-31); CHLORIDE LEVEL 104 MMOL/L (98-107); CHOLESTEROL LEVEL 152 MG/DL (<200); CHOLESTEROL RISK RATIO 3.54 (<5); GLOMERULAR FILTRATION RATE > 60.0 (>49); GLUCOSE, FASTING 106 MG/DL (74-106); HDL CHOLESTEROL 42.9 MG/DL (>40); IRON (FE) 156 UG/DL (65-175); LDL CHOLESTEROL 94.3 MG/DL (<100); NON-HDL-C 109.1 MG/DL; PERCENT SATURATION 45.7 % (19.7-50.0); POTASSIUM SERUM 4.2 MMOL/L (3.5-5.1); SODIUM LEVEL 141 MMOL/L (136-145); TOTAL IRON BINDING CAPACITY 341 UG/DL (250-425); TRIGLYCERIDES LEVEL 74 MG/DL (<150)
[2022-07-11 13:59] LABS: FERRITIN 52.3 NG/ML (10.5-307.3); TOTAL 25(OH) VITAMIN D 60.2 NG/ML (20.0-100.0)
[2022-07-11 14:00] LABS: VITAMIN B12 LEVEL 874 PG/ML (211-911)
[2022-07-11 14:03] LABS: FOLATE > 24.00 NG/ML (>5.4)
[2022-07-16 18:07] LABS: VITAMIN A, RETINOL LEVEL 57.8 ug/dL (22.0-69.5); VITAMIN B1 LEVEL WHOLE BLOOD 202.2 nmol/L (66.5-200.0)
== END ==
LOC: M WUC 09:47
PROVIDERS: ATTEND Physician Assistant
DX: K91.2 Postsurgical malabsorption, not elsewhere classified (principal); Z13.220 Encounter for screening for lipoid disorders; Z98.84 Bariatric surgery status; Z13.21 Encounter for screening for nutritional disorder

== ENCOUNTER → 2022-07-17 | Outpatient (CLI) | payer MEDICARE, OTHER | LOC: M RAD 15:23 | PROVIDERS: ATTEND Nurse Practitioner Family | DX: Z85.820 Personal history of malignant melanoma of skin (principal) ==

== ENCOUNTER → 2023-04-29 | Outpatient (CLI) | payer MEDICARE ==
[~2023-04-29] MED LIST changes: +CELE0.09 PO; -CELE1CAP9 PO
== END ==
LOC: M RAD 10:17
PROVIDERS: ATTEND Nurse Practitioner Family
DX: R22.1 Localized swelling, mass and lump, neck (principal)

== ENCOUNTER 2023-07-16 09:15 | Emergency (ER) | payer MEDICARE ==
[~2023-07-16] VITALS: Ht 177.8 cm; Wt 150.6 kg
[2023-07-16 09:15] VITALS: TEMP 98.5; O2SAT 95
[~2023-07-16 09:15] MED LIST changes: +METO200T15 PO; -METO200T28 PO
[2023-07-16 12:04] VITALS: BP 136/86
[2023-07-16] MEDS ORDERED: ACET-653 PO (14:08)
== END 2023-07-16 14:14 | disposition home or self-care (01) ==
LOC: M ED 09:15
DX: D17.22 Benign lipomatous neoplasm of skin and subcutaneous tissue of left arm (principal); I48.91 Unspecified atrial fibrillation; Z79.1 Long term (current) use of non-steroidal anti-inflammatories (NSAID); Z79.899 Other long term (current) drug therapy

== ENCOUNTER → 2023-09-12 | Outpatient (CLI) | payer MEDICARE ==
[~2023-09-12] MED LIST changes: +ACET-653 PO; +PROHANCE 279.3MG/ML 15ML VIAL As Ordered ONE; +PROHANCE 279.3MG/ML 5ML VIAL As Ordered ONE
== END ==
LOC: M RAD 08:05
PROVIDERS: ATTEND Plastic Surgery Surgery of the Hand
DX: D49.2 Neoplasm of unspecified behavior of bone, soft tissue, and skin (principal)
CPT/HCPCS: 70543; A9576

== ENCOUNTER → 2023-10-13 | Outpatient (CLI) | payer MEDICARE ==
[~2023-10-13] MED LIST changes: +LIDOCAINE 1% MDV 20ML VIAL As Ordered ONE; -PROHANCE 279.3MG/ML 15ML VIAL As Ordered ONE; -PROHANCE 279.3MG/ML 5ML VIAL As Ordered ONE
[2023-10-13 12:10] VITALS: TEMP 98.8
[2023-10-13 13:05] VITALS: BP 149/74; O2SAT 99
== END ==
LOC: M IRPRO 12:00
PROVIDERS: ATTEND Plastic Surgery Surgery of the Hand
DX: C43.4 Malignant melanoma of scalp and neck (principal)

== ENCOUNTER → 2023-12-04 | Outpatient (CLI) | payer MEDICARE ==
[~2023-12-04] MED LIST changes: -LIDOCAINE 1% MDV 20ML VIAL As Ordered ONE
== END ==
LOC: M WUC 10:05
PROVIDERS: ATTEND Physician Assistant Medical
DX: C43.9 Malignant melanoma of skin, unspecified (principal)

== ENCOUNTER → 2023-12-11 | Outpatient (CLI) | payer MEDICARE | LOC: M WUC 10:38 | PROVIDERS: ATTEND Physician Assistant Medical | DX: C43.9 Malignant melanoma of skin, unspecified (principal) ==

== ENCOUNTER → 2023-12-25 | Outpatient (CLI) | payer MEDICARE | LOC: M WUC 10:11 | PROVIDERS: ATTEND Physician Assistant Medical | DX: C43.9 Malignant melanoma of skin, unspecified (principal) ==

== ENCOUNTER → 2023-12-28 | Outpatient (REF) | payer MEDICARE | LOC: M LAB REF 19:53 | PROVIDERS: ATTEND Registered Nurse | DX: H10.9 Unspecified conjunctivitis (principal) ==

== ENCOUNTER → 2024-01-01 | Outpatient (CLI) | payer MEDICARE | LOC: M WUC 11:09 | PROVIDERS: ATTEND Physician Assistant Medical | DX: C43.9 Malignant melanoma of skin, unspecified (principal) ==

== ENCOUNTER → 2024-01-08 | Outpatient (CLI) | payer MEDICARE | LOC: M WUC 10:51 | PROVIDERS: ATTEND Physician Assistant Medical | DX: C43.9 Malignant melanoma of skin, unspecified (principal) ==

== ENCOUNTER → 2024-01-12 | Outpatient (CLI) | payer MEDICARE ==
[2024-01-12 14:23] LABS: BASO # 0.1 10^3/uL (0.0-0.2); EOS # 1.3 10^3/uL (0.0-0.5); EOS % 10.3 % (0.0-3.0); HEMATOCRIT 46.1 % (42.0-52.0); HEMOGLOBIN 14.3 g/dl (13.5-17.5); LYMPH # 4.1 10^3/uL (1.5-5.0); LYMPH % 33.2 % (24.0-44.0); MEAN CORPUSCULAR HEMOGLOBIN 30.8 pg (27.0-33.0); MEAN CORPUSCULAR VOLUME 99.1 fl (80.0-96.0); MONO # 0.9 10^3/uL (0.0-0.8); MONO % 7.3 % (2.0-8.0); NEUTROPHILS # 5.9 10^3/uL (1.5-8.5); NEUTROPHILS % 47.8 % (36.0-66.0); PLATELET COUNT, AUTOMATED 319 10^3/uL (150-450); RED BLOOD COUNT 4.65 10^6/uL (4.30-6.10); WHITE BLOOD COUNT 12.4 10^3/uL (4.0-10.0)
[2024-01-12 14:53] LABS: THYROID STIMULATING HORMONE 2.356 uIU/ML (0.55-4.78)
[2024-01-12 14:55] LABS: FREE T4 1.36 NG/DL (0.89-1.76)
[2024-01-12 14:59] LABS: FREE T3 3.5 PG/ML (2.3-4.2)
[2024-01-12 15:00] LABS: THYROID PEROXIDASE ANTIBODY < 28.0 U/ML (<60.0)
== END ==
LOC: M WUC 09:37
PROVIDERS: ATTEND Physician Assistant
DX: H11.423 Conjunctival edema, bilateral (principal)

== ENCOUNTER 2024-01-29 13:43 | Emergency (ER) | payer MEDICARE ==
[~2024-01-29] VITALS: Ht 177.8 cm; Wt 151.8 kg
[2024-01-29] MEDS ORDERED: PANT40TA29 (13:56)
[2024-01-29] MEDS ORDERED: DEXA1OPD (13:58)
[2024-01-29] MEDS ORDERED: POLY2.5S (13:58)
[2024-01-29] MEDS ORDERED: PROHANCE 279.3MG/ML 15ML VIAL As Ordered ONE (18:55)
[2024-01-29] MEDS ORDERED: PROHANCE 279.3MG/ML 5ML VIAL As Ordered ONE (18:55)
[2024-01-29 20:20] VITALS: BP 150/85; TEMP 97.6; O2SAT 96
== END 2024-01-29 21:23 | disposition left against medical advice (07) ==
LOC: M ED 13:43
DX: H57.89 Other specified disorders of eye and adnexa (principal); I48.91 Unspecified atrial fibrillation; I10 Essential (primary) hypertension; E78.5 Hyperlipidemia, unspecified; Z79.01 Long term (current) use of anticoagulants; Z79.899 Other long term (current) drug therapy; Z53.9 Procedure and treatment not carried out, unspecified reason
CPT/HCPCS: 36415; 70543; 80047; 99283; A9576

== ENCOUNTER → 2024-05-21 | Outpatient (CLI) | payer MEDICARE ==
[~2024-05-21] MED LIST changes: +DEXA1OPD; +ISOVUE-370 76% 100ML VIAL As Ordered ONE; +PANT40TA29; +POLY2.5S
== END ==
LOC: M RAD 09:56
PROVIDERS: ATTEND Specialist
DX: D03.8 Melanoma in situ of other sites (principal)
CPT/HCPCS: 71260; 74177; Q9967

== ENCOUNTER → 2024-06-03 | Outpatient (CLI) | payer MEDICARE ==
[~2024-06-03] MED LIST changes: -ISOVUE-370 76% 100ML VIAL As Ordered ONE
[2024-06-03 13:23] LABS: APPEARANCE, URINE CLEAR (CLEAR); BACTERIA, URINE AUTO NEGATIVE (NEGATIVE); BILIRUBIN, URINE AUTO NEGATIVE (NEGATIVE); BLOOD, URINE BLOOD NEGATIVE (NEGATIVE); COLOR, URINE YELLOW (YELLOW); GLUCOSE, URINE (UA) AUTO NEGATIVE (NEGATIVE); KETONE, URINE AUTO NEGATIVE (NEGATIVE); LEUKOCYTE ESTERASE, URINE AUTO NEGATIVE (NEGATIVE); MUCUS, URINE SMALL (NEGATIVE); NITRITE, URINE AUTO NEGATIVE (NEGATIVE); PROTEIN, URINE AUTO 1+ mg/dL (NEGATIVE); RBC, URINE AUTO 1 /HPF (0-3); SPECIFIC GRAVITY URINE AUTO 1.019 (1.002-1.035); SQUAMOUS EPITHELIAL CELL UR AU 0 /HPF (0-6); UROBILINOGEN, URINE AUTO 0.2 mg/dL (0.0-2.0); WBC, URINE AUTO 3 /HPF (0-3)
[2024-06-03 13:49] LABS: BASO # 0.1 10^3/uL (0.0-0.2); BASO % 0.8 % (0.0-1.0); EOS # 0.3 10^3/uL (0.0-0.5); HEMATOCRIT 37.9 % (42.0-52.0); HEMOGLOBIN 11.7 g/dl (13.5-17.5); LYMPH # 4.3 10^3/uL (1.5-5.0); LYMPH % 39.5 % (24.0-44.0); MEAN CORPUSCULAR HGB CONC 30.9 g/dl (32.0-36.5); MEAN CORPUSCULAR VOLUME 100.3 fl (80.0-96.0); MONO # 0.8 10^3/uL (0.0-0.8); MONO % 7.7 % (2.0-8.0); NEUTROPHILS # 5.2 10^3/uL (1.5-8.5); NEUTROPHILS % 48.6 % (36.0-66.0); PLATELET COUNT, AUTOMATED 294 10^3/uL (150-450); RED BLOOD COUNT 3.78 10^6/uL (4.30-6.10); WHITE BLOOD COUNT 10.8 10^3/uL (4.0-10.0)
[2024-06-03 14:13] LABS: ALBUMIN 3.4 G/DL (3.2-5.2); ALKALINE PHOSPHATASE 93 U/L (40-129); ALT/SGPT 24 U/L (7.0-40); AST/SGOT 25 U/L (<34); BILIRUBIN,TOTAL 0.6 MG/DL (0.3-1.2); BLOOD UREA NITROGEN 16 MG/DL (9-23); CALCIUM LEVEL 8.9 MG/DL (8.3-10.6); CARBON DIOXIDE LEVEL 29 MMOL/L (20-31); CHLORIDE LEVEL 103 MMOL/L (98-107); GLOMERULAR FILTRATION RATE > 60.0 (>49); GLUCOSE, FASTING 111 MG/DL (74-106); POTASSIUM SERUM 3.6 MMOL/L (3.5-5.1); SODIUM LEVEL 143 MMOL/L (136-145); TOTAL PROTEIN 6.5 G/DL (5.7-8.2)
[2024-06-03 14:15] LABS: THYROID STIMULATING HORMONE 3.835 uIU/ML (0.55-4.78)
== END ==
LOC: M WUC 08:22
PROVIDERS: ATTEND Family Medicine
DX: R60.9 Edema, unspecified (principal); I48.91 Unspecified atrial fibrillation

== ENCOUNTER → 2024-07-30 | Outpatient (CLI) | payer MEDICARE ==
[2024-07-30 13:37] LABS: BLOOD UREA NITROGEN 24 MG/DL (9-23); CALCIUM LEVEL 9.5 MG/DL (8.3-10.6); CARBON DIOXIDE LEVEL 27 MMOL/L (20-31); CHLORIDE LEVEL 104 MMOL/L (98-107); CHOLESTEROL LEVEL 118 MG/DL (<200); CHOLESTEROL RISK RATIO 2.71 (<5); CREATININE FOR GFR 0.79 MG/DL (0.70-1.30); GLOMERULAR FILTRATION RATE > 90.0 (>49); GLUCOSE, FASTING 112 MG/DL (74-106); HDL CHOLESTEROL 43.4 MG/DL (>40); MAGNESIUM LEVEL 2.3 MG/DL (1.8-2.4); NON-HDL-C 74.6 MG/DL; POTASSIUM SERUM 4.3 MMOL/L (3.5-5.1); SODIUM LEVEL 143 MMOL/L (136-145); TRIGLYCERIDES LEVEL 93 MG/DL (<150)
== END ==
LOC: M WUC 10:28
PROVIDERS: ATTEND Physician Assistant
DX: R06.02 Shortness of breath (principal); E78.00 Pure hypercholesterolemia, unspecified; I48.21 Permanent atrial fibrillation

== ENCOUNTER → 2024-08-02 | Outpatient (CLI) | payer MEDICARE | LOC: M EKG 09:18 | PROVIDERS: ATTEND Physician Assistant | DX: I48.21 Permanent atrial fibrillation (principal) ==

== ENCOUNTER → 2024-10-11 | Outpatient (CLI) | payer MEDICARE ==
[~2024-10-11] MED LIST changes: +DIGO0.123; +TORS20TA2
== END ==
LOC: M PLAIMG 07:55
PROVIDERS: ATTEND Physician Assistant
DX: R06.02 Shortness of breath (principal); I50.9 Heart failure, unspecified

== ENCOUNTER → 2024-11-08 | Outpatient (CLI) | payer MEDICARE ==
[2024-11-08 12:53] LABS: ALT/SGPT 27 U/L (7.0-40); AST/SGOT 28 U/L (<34); CALCIUM LEVEL 9.3 MG/DL (8.3-10.6); CARBON DIOXIDE LEVEL 30 MMOL/L (20-31); CHLORIDE LEVEL 105 MMOL/L (98-107); CHOLESTEROL LEVEL 120 MG/DL (<200); CHOLESTEROL RISK RATIO 2.87 (<5); CREATININE FOR GFR 0.83 MG/DL (0.70-1.30); GLOMERULAR FILTRATION RATE > 90.0 (>49); LDL CHOLESTEROL 58.9 MG/DL (<100); MAGNESIUM LEVEL 2.3 MG/DL (1.8-2.4); NON-HDL-C 78.3 MG/DL; POTASSIUM SERUM 4.6 MMOL/L (3.5-5.1); SODIUM LEVEL 144 MMOL/L (136-145); TRIGLYCERIDES LEVEL 97 MG/DL (<150)
== END ==
LOC: M WUC 08:57
PROVIDERS: ATTEND Physician Assistant
DX: I50.9 Heart failure, unspecified (principal); I25.10 Atherosclerotic heart disease of native coronary artery without angina pectoris; E78.00 Pure hypercholesterolemia, unspecified; I48.21 Permanent atrial fibrillation

== ENCOUNTER → 2024-11-10 | Outpatient (REF) | payer MEDICARE ==
[2024-11-10 15:04] LABS: ALT/SGPT 25 U/L (7.0-40); AST/SGOT 25 U/L (<34); CALCIUM LEVEL 9.2 MG/DL (8.3-10.6); CARBON DIOXIDE LEVEL 30 MMOL/L (20-31); CHLORIDE LEVEL 100 MMOL/L (98-107); CHOLESTEROL LEVEL 123 MG/DL (<200); CHOLESTEROL RISK RATIO 2.80 (<5); CREATININE FOR GFR 0.80 MG/DL (0.70-1.30); GLOMERULAR FILTRATION RATE > 90.0 (>49); LDL CHOLESTEROL 58.3 MG/DL (<100); MAGNESIUM LEVEL 2.4 MG/DL (1.8-2.4); NON-HDL-C 79.1 MG/DL; POTASSIUM SERUM 4.5 MMOL/L (3.5-5.1); SODIUM LEVEL 142 MMOL/L (136-145); TRIGLYCERIDES LEVEL 104 MG/DL (<150)
== END ==
LOC: M LABWUC 12:23
PROVIDERS: ATTEND Physician Assistant
DX: I50.9 Heart failure, unspecified (principal); I25.10 Atherosclerotic heart disease of native coronary artery without angina pectoris; E78.00 Pure hypercholesterolemia, unspecified; I48.21 Permanent atrial fibrillation

== ENCOUNTER → 2025-02-25 | Outpatient (CLI) | payer MEDICARE ==
[2025-02-25 12:18] LABS: CALCIUM LEVEL 8.6 MG/DL (8.3-10.6); CARBON DIOXIDE LEVEL 29 MMOL/L (20-31); CHLORIDE LEVEL 104 MMOL/L (98-107); CREATININE FOR GFR 0.90 MG/DL (0.70-1.30); GLOMERULAR FILTRATION RATE > 90.0 (>49); POTASSIUM SERUM 4.9 MMOL/L (3.5-5.1); SODIUM LEVEL 143 MMOL/L (136-145)
== END ==
LOC: M WUC 08:27
PROVIDERS: ATTEND Physician Assistant
DX: I50.32 Chronic diastolic (congestive) heart failure (principal)